=== PATIENT | male | born 1970 | race Caucasian/White ===

== ENCOUNTER 2017-08-30 10:09 | Emergency (ER) | payer OTHER ==
[2017-08-30] MEDS ORDERED: KETOROLAC TROMETHAMINE 60 MG/2 ML VIAL IM ONE ×2 (10:18→10:48)
--- NOTE | 2017-08-30 10:40 | ERNOTE ---
Integumentary HPI - Narrative Date of Service: 08/30/17 - General Presenting Symptoms: other - red wollen R eyelid Time Seen by Provider: 08/30/17 10:12 Source: patient Exam Limitations: no limitations - Immun/Allergies/Home Medications Immunizations: IMMUNIZATION HX Immunizations Up to Date Yes History of Influenza Vaccine No Hx Pneumococcal Vaccination No Allergies/Adverse Reactions: Allergies Allergy/AdvReac Type Severity Reaction Status Date / Time codeine [Codeine] Allergy Mild rash Verified 08/30/17 10:18 penicillin G AdvReac Verified 08/30/17 10:18 Home Medications: HOME MEDICATIONS Sulfamethoxazole/Trimethoprim [Bactrim Ds] 1 tab PO BID #28 tab 08/30/17 [Last Taken Unknown] - History of Present Illness Narrative: Pt. comes in with c/o R lower eyelid pain and swelling for three days Pt. states that he noted a foster under his R eye at first and athen after that went awauy h noted that it became red and swollen. Pt. denies any vision changes, eye pain or pressure, fever, SOB, CP, NVD, or drainage. Pt. states that when he is not touching his eye he is not having any pain. Pt. denies any prehospital treatment. Review of Systems - Review of Systems Constitutional: Present: no symptoms reported. Absent: recent illness, fever, chills, weakness, fatigue, malaise EYE: Present: eye pain. Absent: eye discharge, blurred vision, double vision, vision changes, tearing ENT: Present: no symptoms reported. Absent: ear pain, ear discharge, nose pain , nasal drainage, sore throat, throat swelling Respiratory: Present: no symptoms reported. Absent: shortness of breath, cough , wheezing Cardiology: Present: no symptoms reported. Absent: chest pain, palpitations, syncope Gastrointestinal/Abdominal: Present: no symptoms reported. Absent: nausea, vomiting, diarrhea Genitourinary: Present: no symptoms reported Musculoskeletal: Present: no symptoms reported Skin: Present: lumps - L lower eyelid. Absent: rash Neurological: Present: no symptoms reported. Absent: anxiety, seizure, weakness All Other Systems: All systems neg except as marked - Patient's Past Medical History Patient History - Medical: No pertinent hx Patient History - Cardiac/Respiratory: No pertinent hx Patient History - Cancer: No Hx of Cancer Patient History - Surgical Procedures: Other Patient History - Other: None - Social History Living Situations: home Abuse History: No History of abuse Psych History: No pertinent hx Smoking Status: Current every day smoker Have you smoked in the past 12 months: Yes Do you dip or chew tobacco: No Alcohol Use: other Drug Use: none - Immunizations Immunizations Up to Date: Yes Hx Pneumococcal Vaccination: No History of Influenza Vaccine: No Physical Exam - Physical Exam General Appearance: Present: wd/wn, alert, no apparent distress Head Exam: Present: normal inspection, no evidence of injury Eye Exam: PERRL: bilateral, EOMI: bilateral, Eyelid inflammation: right - lower eyelid with 1 cm orf induration and 2 cm x 1 cm of redness no fluid ballotablitily Ears, Nose, Throat: Present: normal ENT inspection Neck: Present: normal inspection, nontender, supple, full range of motion Respiratory: Present: no respiratory distress, normal breath sounds, no accessory muscle use, chest nontender Cardiovascular/Chest: Present: regular rate, rhythm, no murmur, normal peripheral pulses Back Exam: Present: normal inspection, normal range of motion, no CVA tenderness , no vertebral tenderness Extremity Exam: Present: normal inspection, non-tender, normal range of motion, no edema Neurological Exam: Present: alert, oriented, normal mood/affect, no motor/ sensory deficits Skin Exam: Present: normal color, warm/dry, other - R undereye swelling ED Progress - Vital Signs Patient's Vital Signs:: I have reviewed the patient's vital signs. Vital Signs: Vital Signs 08/30/17 10:14 Temperature 36.7 C Pulse Rate 70 Respiratory 14 Rate Blood Pressure 120/85 O2 Sat by Pulse 99 Oximetry Departure Clinical Impression: Cellulitis of right lower eyelid - Departure Disposition: Home self-care Condition: Good Instructions: Cellulitis, Adult, [id number] Additional Instructions: Please follow up with vocational guidance counselor at [facility] on Friday. Call for first appointment. Prescriptions: Sulfamethoxazole/Trimethoprim [Bactrim Ds] 1 tab PO BID #28 tab
[2017-08-30] MEDS ORDERED: LIDOCAINE HCL 20 ML VIAL ONE (10:49)
[2017-08-30 10:57] VITALS: BP 116/81
== END 2017-08-30 11:04 | disposition home or self-care (01) ==
LOC: ER 10:09
DX: H00.032 Abscess of right lower eyelid (principal); F17.200 Nicotine dependence, unspecified, uncomplicated